=== PATIENT | female | born 1955 | race Caucasian/White ===

== ENCOUNTER → 2017-09-11 | Outpatient (CLI) | payer OTHER ==
[~2017-09-11] MED LIST: IBUP-1618 PO; LOR5/325 PO; MULT-1367 PO; [UNRECOGNIZED DRUG - CODE] PO
--- NOTE | 2017-09-11 15:33 | RADIOLOGY IMAGING REPORT ---
FACILITY: [facility] PATIENT NAME: EMILIA GIL : [id number] MR: [id number] V: [id number] EXAM DATE: [id number] ORDERING PHYSICIAN: BRETT GUTIÉRREZ TECHNOLOGIST: Shelbie Bonilla PROCEDURE:BILATERAL DIGITAL SCREENING MAMMOGRAM WITH CAD ASSISTED INTERPRETATION & 3D TOMOSYNTHESIS COMPARISON:08/18/2011 and priors back to 07/22/06 INDICATIONS:SCREENING FINDINGS: Breast parenchyma is predominantly fatty. There are no mammographic findings concerning for malignancy. There is no significant interval change. DIAGNOSTIC CATEGORY 1--NEGATIVE. RECOMMENDATIONS: ROUTINE MAMMOGRAM AND CLINICAL EVALUATION IN 1 YR. IMPRESSION: BIRADS 1: Negative Dictated by: Presley Benton on 09/11/2017 at 13:28 Transcribed by: NAGA on 09/11/2017 at 14:48 Approved by: Presley Benton on 09/11/2017 at 15:32 [facility]
== END ==
LOC: MAMO 00:28
PROVIDERS: ATTEND Physician Assistant
DX: Z12.31 Encounter for screening mammogram for malignant neoplasm of breast (principal)
CPT/HCPCS: 77063; 77067